=== PATIENT | male | born 1995 | race African-American/Black ===

== ENCOUNTER 2018-02-27 17:19 | Emergency (ER) | payer OTHER ==
[~2018-02-27] VITALS: Ht 190.5 cm; Wt 101.9 kg
[~2018-02-27 17:19] MED LIST: NOHOMEMEDS
[2018-02-27 19:01] VITALS: BP 152/91
== END 2018-02-27 19:01 | disposition home or self-care (01) ==
LOC: EME 17:19
DX: S00.83XA Contusion of other part of head, initial encounter (principal); S63.91XA Sprain of unspecified part of right wrist and hand, initial encounter; Y04.0XXA Assault by unarmed brawl or fight, initial encounter; J45.909 Unspecified asthma, uncomplicated; K21.9 Gastro-esophageal reflux disease without esophagitis; Z88.8 Allergy status to other drugs, medicaments and biological substances
CPT/HCPCS: 73140; 99281; 99283